=== PATIENT | male | born 1960 | race Caucasian/White ===

== ENCOUNTER → 2016-08-03 | Outpatient (CLI) | payer MEDICARE, OTHER ==
[~2016-08-03] MED LIST: NORVASC 5 MG TAB5 MG PO
== END ==
LOC: KOH-I 10:34
DX: R06.02 Shortness of breath (principal)
CPT/HCPCS: 71020

== ENCOUNTER → 2016-08-24 | Day surgery (SDC) | payer MEDICARE, OTHER ==
[~2016-08-24] VITALS: Ht 182.9 cm; Wt 108.9 kg
== END | disposition home or self-care (01) ==
LOC: OR 09:10
PROVIDERS: Surgery
PROC: 0DBN8ZZ Excision of Sigmoid Colon, Via Natural or Artificial Opening Endoscopic (ICD-10-PCS; principal; 2016-08-24 12:00)
DX: Z12.11 Encounter for screening for malignant neoplasm of colon (principal); K63.5 Polyp of colon; I10 Essential (primary) hypertension; E55.9 Vitamin D deficiency, unspecified; E78.5 Hyperlipidemia, unspecified; G25.81 Restless legs syndrome; G89.29 Other chronic pain; M19.90 Unspecified osteoarthritis, unspecified site; Z87.891 Personal history of nicotine dependence; Z79.899 Other long term (current) drug therapy
CPT/HCPCS: J2250; J3010; J7120